=== PATIENT | male | born 1955 | race Caucasian/White ===

== ENCOUNTER 2017-01-18 15:17 | Observation (INO) ==
[~2017-01-18 15:17] MED LIST: LIDOCAINE 2% 5 ML VIAL ONE; PROPOFOL 200 MG/20 ML VIAL IV ONE
[2017-01-18] MEDS ORDERED: HYDROmorphone 2 MG/1 ML VIAL IV STA (15:54)
[2017-01-18] MEDS ORDERED: ONDANSETRON 4 MG/2 ML VIAL IV STA (15:54)
[2017-01-18] MEDS ORDERED: KETOROLAC 30 MG/1 ML VIAL IV STA (15:54)
[2017-01-18] MEDS ORDERED: SODIUM CHLORIDE 0.9% 1,000 ML IV STA (15:54)
[2017-01-18] MEDS ORDERED: HYDROmorphone 2 MG/1 ML VIAL ONE (16:02)
[2017-01-18] MEDS ORDERED: KETOROLAC 30 MG/1 ML VIAL ONE (16:02)
[2017-01-18] MEDS ORDERED: ONDANSETRON 4 MG/2 ML VIAL ONE (16:02)
--- NOTE | 2017-01-18 16:11 | CT Report ---
Exam: CT abdomen pelvis wo con Date: 01/18/2017 3:35 PM Comparison: 05/24/2015 Indication: Abdominal pain and flank pain right-sided Total DLP: 480.7 mGy*cm Technical: Images were obtained from the lung bases to the iliac crest continuation through the pelvis without intravenous oral contrast with axial sagittal coronal imaging available for review. Dose reduction was performed with decreasing kv and mA and automated exposure Findings: Lung bases: No obvious infiltrates or effusions present. Liver and Spleen: Unremarkable Gallbladder and Pancreas: Small calcification within the gallbladder. Pancreas is otherwise unremarkable. Adrenals: Unremarkable Kidneys: Mild dilatation the right renal collecting system with a stone in the distal right ureter measuring approximately 5 mm. Image slice #125 the left kidney reveals a stone in the left renal collecting system measuring approximately 3 to 4 mm in the lower pole with 2 mm stone in the upper pole region and a 5-6 mm stone present. Stomach: Incomplete distended with air-fluid and debris Retroperitoneum: No enlarged lymph nodes. Aorta and IVC: Atherosclerotic plaque in the aorta iliac vessels. No aneurysm noted. Aorta and IVC without contrast or not otherwise evaluated. Bowel and Mesentery: No evidence of appendicitis diverticulosis or diverticulitis present. Pelvis: Bladder: Incompletely distended with fluid Fluid: No free fluid identified. Lymph nodes: No enlarged lymph nodes. Pelvic organs: Unremarkable Osseous structures: Degenerative changes of thoracolumbar spine. The bony pelvis is otherwise intact. Impression: 1. Right ureterolithiasis with a 5 mm stone in the distal right ureter. Mild hydronephrosis right renal collecting system 2. Left nephrolithiasis without obstruction present. 3. Vascular calcifications aorta iliac vessels 4. Degenerative spondylosis changes thoracolumbar spine. PROCEDURE INTERPRETED AT [facility] DEPARTMENT OF RADIOLOGY Final Report Signed by: Dr. Sandip Cooper
--- NOTE | 2017-01-18 16:28 | XRay Report ---
XR abdomen 1V Indication: Abdominal pain Comparison: 24 May 2015 Findings: No free fluid or free air seen. Increased stool volume is seen in the colon. The bowel gas pattern otherwise appears within normal limits. No abnormal calcifications are present. No other abnormality is identified. Impression: Increased stool volume in the colon, may indicate constipation. PROCEDURE INTERPRETED AT [facility] DEPARTMENT OF RADIOLOGY Final Report Signed by: Dr. Pillo Perez
[2017-01-18 16:59] LABS: Apearance,Urine CLOUDY (Clear); Bacteria,Urine Moderate /HPF (Few); Bilirubin,Urine Negative (Negative); Blood, Urine Large mg/dL (Negative); Glucose,Urine (UA) 50 mg/dL (Negative); Ketones,Urine Negative (Negative); Mucus,Urine Occasional /LPF (Occasional); Nitrite,Urine Positive (Negative); Protein,Urine 100 MG/DL; RBC,Urine 49 /HPF (0-4); Squamous Epithelial Cell,Urine Occasional /HPF (0-10); Urine Color Yellow (Yellow); Urine Specific Gravity 1.017 (1.001-1.035); Urine Urobilinogen < 2.0 EU/DL (0.2-1.0); WBC,Urine 109 /HPF (0-6)
[2017-01-18 17:02] LABS: Basophils % 0.2 % (0.0-0.8); Eosinophils % 0.2 % (0.00-10.9); Hematocrit 43.8 VOL% (42.0-52.0); Hemoglobin 15.7 GM/DL (14.0-18.0); Immature Granulocytes % 0.5 %; Immature Granulocytes Absolute 0.05 #; Lymphocytes # 0.5 10*3/uL (1.4-4.0); Lymphocytes % 5.7 % (21.2-54.2); Mean Corpuscular HGB Conc 35.8 GM/DL (32-36); Mean Corpuscular Hemoglobin 35 PG (27-34); Monocytes # 0.5 10*3/uL (0.11-0.8); Monocytes % 4.9 % (1.7-12.7); Neutrophils % 88.5 % (38.7-73.9); Platelet Count 200 T/CUMM (130-400); Red Blood Count 4.47 MC/CUMM (3.8-5.5); Red Cell Distribution Width 12.2 % (9.3-17.3); White Blood Count 9.1 T/CUMM (4-12)
[2017-01-18 17:09] LABS: Calcium 8.8 MG/DL (8.5-10.1); Osmolality,Calculated 282.3 MOS/KG (273-304); Potassium 3.4 MMOL/L (3.5-5.1)
[2017-01-18] MEDS ORDERED: LEVOFLOXACIN INJ 500 MG in PREMIX 1 EACH IV STA (17:18)
[2017-01-18] MEDS ORDERED: LEVOFLOXACIN INJ 100 ML IV ONE (17:32)
--- NOTE | 2017-01-18 17:49 | Emergency Department Note ---
Joseph Craig Jessica J, am scribing for, and in the presence of, Immanuel Fowler MD 16:10. Malcolm Craig Doug C, MD, personally performed the services described in this documentation, ascribed by Arlene Ruiz in my presence, and it is both accurate and complete [id number] . Arrival - Arrival Chief Complaint: Abdominal / Flank Pain Stated Complaint: Right side pain ED Nursing Triage Note: Right sided abd pain onset just SADDLE STITCHER - pt states that he has a HX of kidney stones Mode of Arrival: Wheelchair Limitations: No Limitations Source: Patient Time Seen by Provider: 01/18/17 15:51 - History of Present Illness HPI Narrative: Patient is a 61-year-old gentleman who presents emergency room complaining of right flank pain that started 2 hours ago. Patient does have a history of kidney stones and states this pain is very reminiscent of discomfort he has had before with his stones. He has had a previous ESWL for kidney stones. He has not seen any blood in his urine and he denies any fever, chills or difficulty voiding. Onset (ago): hour(s) Consistency: constant Severity: severe Severity scale (1-10): 10 Quality: aching Allergies/Adverse Reactions: Allergies Allergy/AdvReac Type Severity Reaction Status Date / Time No Known Allergies Allergy Unverified 05/24/15 20:45 Home Medications: Home Medications Medication Instructions Recorded Confirmed Type Atazanavir Sulfate [Reyataz] 300 mg PO DAILY 05/24/15 01/18/17 History Emtricitabine/Tenofov 200-300 1 tablet PO DAILY 05/24/15 01/18/17 History [Truvada] Levothyroxine Tab [Synthroid Tab] 75 mcg PO DAILY@0700 05/24/15 01/18/17 History Ritonavir [Norvir] 100 tablet PO DAILY 05/24/15 01/18/17 History Valsartan [Diovan] 160 mg PO DAILY 05/24/15 01/18/17 History Review of System - Review of System 12 point system: reviewed and no additional remarkable complaints except as stated - Review of System Constitutional: Present: diaphoresis. Absent: chills, fever Eyes: Absent: vision change Head/Ears/Nose/Throat: Absent: earache, nasal drainage Respiratory: Absent: cough, respiratory distress Cardiovascular: Absent: chest pain Gastrointestinal: Present: abdominal pain (lower abdominal pain). Absent: nausea, vomiting Genitourinary male: Absent: urgency, dysuria, frequency Musculoskeletal: Absent: arm pain, leg pain, neck pain Skin: Absent: rash, change in color Neurological: Absent: headache, weakness, numbness Psychiatric: Absent: anxiety Hematological/Lymphatic: Absent: easy bleeding, easy bruising Medical,Surgical,& Family Hx - Medical History Cardio: History of: Hypertension Genitourinary: History of: Kidney Stones Gastrointestinal: History of: Polyps Reproductive: No histroy: Sexually Transmitted Disease Other: History of: HIV - Surgical History Abdominal Surgeries: Surgical HX of: Colonoscopy - Family History Family History: Reports;: Family Hypertension - Social History Smoking Status: Never smoker Frequency of Alcohol Use: None Type of Drug Use: None Exam Vital Signs: Vital Signs Temperature 97.1 F L 01/18/17 17:11 Pulse Rate 65 01/18/17 17:11 Respiratory Rate 20 01/18/17 17:11 Blood Pressure 162/86 01/18/17 17:11 O2 Sat by Pulse Oximetry 97 01/18/17 15:35 - General General appearance: alert, in distress (appears uncomfortable secondary to pain) - Head Head exam: Present: atraumatic, normocephalic - Eye Eye exam: Present: normal appearance, PERRL, EOMI - ENT ENT exam: Present: normal exam, normal oropharynx, mucous membranes moist. Absent: mucous membranes dry - Neck Neck exam: Present: normal inspection, full ROM, trachea midline - Chest Chest inspection: Present: normal inspection, symmetric chest wall rise - Respiratory Respiratory exam: Present: normal lung sounds bilaterally - Cardiovascular Cardiovascular exam: Present: regular rate, normal rhythm, normal heart sounds - Abdominal Exam Abdominal exam: Present: soft, tenderness (lower abdominal tender to light touch of the stethoscope), normal bowel sounds. Absent: distention - Extremities Exam Extremities exam: Present: normal inspection, full ROM. Absent: tenderness - Back Exam Back exam: Present: normal inspection - Neurological Exam Neurological exam: Present: alert, oriented X3, CN II-XII intact. Absent: motor sensory deficit - Psychiatric Psychiatric exam: Present: normal affect, normal mood - Skin Skin exam: Present: warm, dry, intact, normal color Course Course Narrative: Patient's clinical presentation, laboratory and radiographic findings were discussed with Dr. Paredes who will see the patient here in the emergency room and determine final disposition. Results - Labs CBC & BMP: 01/18/17 16:35 01/18/17 16:35 Lab Results: I have reviewed the patients labs Labs: Laboratory Tests 01/18/17 15:55 Urine pH 5.0 Ur Specific [place] 1.017 Urine Protein 100 Urine Ketones Negative Urine Nitrate Positive H Urine Urobilinogen < 2.0 H Urine Leukocytes Moderate H Urine RBC 49 Urine WBC 109 Laboratory Tests 01/18/17 01/18/17 16:35 16:35 WBC 9.1 RBC 4.47 Hgb 15.7 Hct 43.8 MCH 35 H Plt Count 200 MPV 9.0 L Neut % (Auto) 88.5 H Lymph % (Auto) 5.7 L Neut # (Auto) 8.0 H Lymph # (Auto) 0.5 L Sodium 141 Potassium 3.4 L Chloride 109 H Carbon Dioxide 25 BUN 17 Creatinine 1.60 H - Diagnostic Findings Procedure: Abdominal x-ray: report reviewed by me (Increased stool volume in the colon, may indicate constipation.), KUB x-ray: report reviewed by me (Stone is visible on KUB.), CT Abdomen and Pelvis: report reviewed by me (1. Right ureterolithiasis with a 5mm stone in the distal right ureter. Mild hydronephrosis right renal collecting system. 2. Left nephrolithiasis without obstruction present. 3. Vascular calcifications aorta iliac vessels. 4. Degenerative spondylosis changes thoracolumbar spine. ) Disposition Clinical Impression: Right ureteral calculus Case discussed with: patient Disposition: Still a Patient Condition: Guarded Time of Disposition: 17:49
[2017-01-18] MEDS ORDERED: cefTRIAXone 1,000 MG in SODIUM CHLORIDE 0.9% 100 ML IV ONE (18:08)
--- NOTE | 2017-01-18 18:23 | Urology History & Physical ---
Assessment and Plan - Time spent with patient Time spent with patient: Less than 30 minutes (1) Hydronephrosis due to obstruction of ureter Status: Acute Assessment and plan: Right distal calculus that are measuring just over 6 mm. He has hydronephrosis and hydroureter down to the calculus. We have discussed trial of passage, ESWL, and stent placement. He reports that his insurance will not cover ESWL at [facility]. He will have to have this arranged in the future. Due to his history of HIV, nitrite positive urine with pyuria, elevated serum creatinine, and significant hydronephrosis, he elects for stent placement. He understands they will have symptoms including stent discomfort, dysuria, frequency, and some pain from this. He will need a another procedure to treat his stones. Current Visit: Yes (2) UTI (urinary tract infection) Status: Acute Assessment and plan: Urine culture sent Rocephin 1 g IV Stent placement needed nitrite positive urine and history of immunodeficiency disease Current Visit: Yes Qualifiers: Hematuria presence: without hematuria (3) Elevated serum creatinine Status: Acute Assessment and plan: Creatinine 1.60, unsure of exact baseline. Obstructing right ureteral calculus noted Current Visit: Yes (4) HIV (human immunodeficiency virus infection) Status: Acute Current Visit: Yes (5) HTN (hypertension) Status: Acute Assessment and plan: Continue home medication Current Visit: Yes (6) Hypothyroidism Status: Acute Assessment and plan: Continue levothyroxine Current Visit: Yes (7) Right ureteral calculus Status: Acute Assessment and plan: We will place right ureteral stent, but he will need definitive treatment of his stone. He reports that he cannot have this done at [place], [place]. Will place a stent without a strain, and then he can follow-up with him as an outpatient. He is does live alone, and we will admit for observation after stent overnight. Current Visit: Yes 12 point system: reviewed and no additional remarkable complaints except as stated - Constitutional Constitutional: Present: chills. Absent: fever(s) - Respiratory Respiratory: Absent: cough, dyspnea - Gastrointestinal Gastrointestinal: Present: abdominal pain - Genitourinary Genitourinary: Present: flank pain. Absent: dysuria, hematuria - Neurological Neurological: Absent: abnormal gait, abnormal speech - Hematologic/Lymphatic Hematologic/Lymphatic: Absent: easy bleeding, easy bruising History of Present Illness Chief complaint: right abd pain History of present illness: Mr. Leung is a 61 year old male who presented to the emergency department with right-sided abdominal pain that started today. He has a history of prior renal stones. He has had lithotripsy in the past. He reports that his insurance will only cover it at [facility]. He reports some subjective chills but no documented fevers. He is having no vomiting or diarrhea. No nausea. He does have a significant history of HIV but thinks his last viral load was undetectable. He has a history of hypertension. His pain is fairly well-controlled currently. I am unsure of his last creatinines, but his creatinine is 1.60 today. He had a urinalysis was nitrite positive with evidence of pyuria. He reports acute onset. Pain is worsened, but now improved with narcotics. Unsure what his prior stones were made of. He has never sent a stone analysis. He has been seen by Dr. Roblero and Dr. Fowler. He states that he identifies Noah Fowler as his urologist. Home Medications Medication Instructions Recorded Confirmed Type Atazanavir Sulfate [Reyataz] 300 mg PO DAILY 05/24/15 01/18/17 History Emtricitabine/Tenofov 200-300 1 tablet PO DAILY 05/24/15 01/18/17 History [Truvada] Levothyroxine Tab [Synthroid Tab] 75 mcg PO DAILY@0700 05/24/15 01/18/17 History Ritonavir [Norvir] 100 tablet PO DAILY 05/24/15 01/18/17 History Valsartan [Diovan] 160 mg PO DAILY 05/24/15 01/18/17 History Allergies Allergy/AdvReac Type Severity Reaction Status Date / Time No Known Allergies Allergy Unverified 05/24/15 20:45 Medical,Surgical,& Family Hx - Medical History Cardio: History of: Hypertension No history of: CHF, SD Psychological: No history of: Anxiety Disorders, Depression Neurology: No history of: Cerebrovascular Accident, Migraine HEENT: No history of: Ear Problem, Eye Problem Endocrine: History of: Thyroid Disorder Rheumatology: No history of;: Gout, Rheumatoid Arthritis Respiratory: No history of: COPD, Obstructive Sleep Apnea Genitourinary: History of: Kidney Stones Gastrointestinal: History of: Polyps Reproductive: No histroy: Sexually Transmitted Disease Other: History of: HIV - Surgical History Thoracic Surgeries: Surgical HX of;: Lithotripsy Abdominal Surgeries: Surgical HX of: Colonoscopy - Family History Family History: Reports;: Family Hypertension - Social History Smoking Status: Never smoker Frequency of Alcohol Use: None Type of Drug Use: None Exam - Constitutional Vitals: Period Temp Pulse Resp BP Sys/Mccloud Pulse Ox Last 24 Hr 97.1 F-97.1 F 65-65 20-20 162-162/86-86 97 General appearance: no acute distress - Head Head exam: Present: normocephalic, atraumatic - Eye Eye exam: Present: EOMI - ENT ENT exam: Present: normal oropharynx - Neck Neck exam: Present: normal inspection. Absent: lymphadenopathy - Respiratory Respiratory exam: Present: clear to auscultation bilaterally. Absent: wheezes - Cardiovascular Cardiovascular exam: Present: regular rate and rhythm. Absent: JVD - GI/Abdominal GI/Abdominal exam: Present: normal bowel sounds, tenderness (Mild right lower quadrant tenderness but no rebound). Absent: rebound - Genitourinary Genitourinary: scrotum without lesions, cysts, edema or rash, penis with no lesions or discharge - Extremities Exam Extremities exam: Present: normal inspection, normal capillary refill - Back Exam Back exam: Present: CVA tenderness (R). Absent: CVA tenderness (L) - Neurological Exam Neurological exam: Present: alert, oriented X3 - Psychiatric Psychiatric exam: Present: normal affect, normal mood - Skin Skin exam: Present: warm, dry Results - Labs CBC & BMP: 01/18/17 16:35 01/18/17 16:35
[2017-01-18] MEDS ORDERED: cefTRIAXone 1,000 MG VIAL ONE (18:59)
--- NOTE | 2017-01-18 19:50 | Operative Note ---
Date of procedure: 01/18/17 Pre-op diagnosis: Right obstructing ureteral calculus; right hydronephrosis; UTI ; elevated Cr Post-op diagnosis: same Procedure: Cystoscopy with insertion of right double-J ureteral stent Indication for procedure: This is a 61-year-old male with a history of HIV and renal stones who presented with acute onset of flank pain today. He was found to have pyuria with nitrite positive urine, a creatinine elevated at 1.60 in significant right flank pain. He reports that his insurance will not allow him to have definitive stone management here, and he will need to go to [place], [place]. We have discussed the risks, benefits, and alternatives of treatment. Due to his HIV and nitrite positive urine he elected for stent placement. Procedure detail: This is a 58-year-old male brought to the OR after informed consent. He was placed supine on the operating table. Proper monitoring devices and SCDs in place and functioning prior to start of the case. He received preop antibiotics with Rocephin 1 g IV. He was induced with general anesthetic without incident. He was then moved to the dorsal lithotomy position. His genitals were prepped and draped in standard fashion. Proper timeout was performed. A 22 Polish rigid cystoscope was used to intubate the urethral meatus. He had a normal anterior urethra with a normal posterior urethra. Approximately 3 cm prostate with no significant obstruction. Slightly elevated bladder neck. His bladder did demonstrate multiple shallow diverticuli with some debris to the bladder. It orthotopic UOs bilaterally. The right UO was identified and a 0.035 angled tip Glidewire was passed into the UO. After passing the stone and a significant amount of debris as well as some stone fragments actually passed. With some evidence of purulent drainage at initial placement. The wire curled in the upper pole on fluoroscopy. A 6 Polish by 26 cm double-J ureteral stent was placed over the wire. Had a good curl on fluoroscopy in the kidney. He had a good curl in the bladder cystoscopically as well as with fluoroscopy. These images were saved. There is significant debris drainage a Schwarz catheter was placed. Plan: We will admit for observation and drainage with Schwarz catheter overnight. Hopefully he will be able to remove the Schwarz in the morning. He will need definitive stone management in the future. Implants: 6 Polish by 26 cm right double-J ureteral stent Anesthesia: CATHERINEA Surgeon / Physician: Artis Paredes Estimated blood loss: none Specimens: other (Urine culture ordered) Condition: stable Disposition: observation Results - Labs CBC & BMP: 01/18/17 16:35 01/18/17 16:35 Lab Results: I have reviewed the past 24 hour labs - Diagnostic Findings Procedure: KUB x-ray: image reviewed by me, CT Abdomen and Pelvis: image reviewed by me Discharge Plan - Discharge Data Disposition: Still a Patient - Discharge Medications No Action Valsartan [Diovan] 160 mg PO DAILY Levothyroxine Tab [Synthroid Tab] 75 mcg PO DAILY@0700 Emtricitabine/Tenofov 200-300 [Truvada] 1 tablet PO DAILY Atazanavir Sulfate [Reyataz] 300 mg PO DAILY Ritonavir [Norvir] 100 tablet PO DAILY - Follow Up or Referral - Forms/Instructions
--- NOTE | 2017-01-18 20:06 | Anesthesia Post-Op ---
Anesthesia Post OP - Post Ansesthetic Evaluation Patient seen in post op: Yes Resp: within normal limits CV: within normal limits Mental: within normal limits Temp: within normal limits [id number]: within normal limits Nausea and Vomiting: within normal limits Pain: within normal limits
[2017-01-18] MEDS ORDERED: fentaNYL 100 MCG/2 ML VIAL ONE (20:11)
[2017-01-18] MEDS ORDERED: MIDAZOLAM 2 MG/2 ML VIAL ONE (20:11)
--- NOTE | 2017-01-18 20:54 | Fluoroscopy Report ---
Exam: [place] fluoroscopy <1hr retrograde pyelogram in OR Date: 01/18/2017 Indication: Right flank pain Comparison: None Findings: 11 seconds fluoroscopy time provided with 2 images obtained which reveals placement of a double-J stent in the right renal collecting system. Small calcifications present in the distal right ureterovesical junction. No contrast was administered. Impression: Interval placement of double-J stent right renal collecting system with suggestion of stone in the distal right ureter. PROCEDURE INTERPRETED AT [facility] DEPARTMENT OF RADIOLOGY Final Report Signed by: Dr. Sandip Cooper
[2017-01-18] MEDS ORDERED: MORPHINE 2 MG/1 ML SYRINGE IV PRN (21:50)
[2017-01-18] MEDS ORDERED: ONDANSETRON 4 MG/2 ML VIAL IV PRN (21:50)
[2017-01-18] MEDS: SODIUM CHLORIDE 0.9% 1,000 ML IV SCH (22:55)
[2017-01-19] MEDS: SODIUM CHLORIDE 0.9% 1,000 ML IV SCH (06:23)
[2017-01-19] MEDS ORDERED: LEVOTHYROXINE 75 MCG TABLET PO SCH (07:00)
--- NOTE | 2017-01-19 07:09 | Discharge Summary ---
Hospital Course - Hospital Course Hospital Course: Admitted for observation after cystoscopy with right ureteral stent placement. He had significant amount of debris in urine that drained immediately after stent was placed. He is done well overnight. Minimal pain. No fevers or chills. No nausea vomiting. Had a catheter overnight for maximize drainage. Discontinued his Schwarz this morning and will Hep-Lock. He is clinically stable. Will discharge home with antibiotics. Will need to follow-up his urine culture. I have discussed that he will need definitive stone management and the stent does not need to stay in long-term. I will ask for follow-up with Dr. Fowler. He reports that his insurance would not allow him to have lithotripsy at [place]. He will have to work this out, and may need referral to another facility. - Time spent with patient Time with patient DS: Less than 30 minutes Diagnosis - Discharge Diagnosis (1) Hydronephrosis due to obstruction of ureter Status: Acute (2) UTI (urinary tract infection) Status: Acute (3) Elevated serum creatinine Status: Acute (4) HIV (human immunodeficiency virus infection) Status: Acute (5) HTN (hypertension) Status: Acute (6) Hypothyroidism Status: Acute (7) Right ureteral calculus Status: Acute Specialty Discharge - Follow Up or Referrals Follow up with: Noah Fowler MD [Physician] - 1 Week (within 1-2 weeks if possible- established pt with Dr Fowler) - Speciality Discharge Instructions Urology Instructions: This right ureteral stent does not need to stay in long- term. If he did not follow-up, including crust and cause you to have more problems. This could ultimately lead to loss of your kidney if not treated appropriately and in a timely manner. You need to contact her insurance company to find out where you can be treated. If you do not have an appointment and have not heard from the urology clinic, please call [place] [facility] for instructions. Discharge Plan - Discharge Data Disposition: Disch To Home/Self Care Condition at Discharge: Stable Discharge Diet: advance to your usual diet, other (Increase intake of oral hydration) Activity: resume usual activities as tolerated Hygiene: may shower Weight Bearing at Discharge: full weight bearing Driving: no restrictions Contact your physician if you experience:: fever over 101, Nausea/Vomiting, Shortness of breath, Bleeding (He can expect some blood in urine, but should not be clots that stop you from voiding), pain uncontrolled by pain medications - Discharge Medications New cephALEXin [Keflex] 500 mg PO Q12HR #14 capsule Hydrocodone/Acetaminophen [[place] 10-325 Tablet] 1 each PO Q6-8H PRN #20 tablet PRN Reason: Pain Moderate To Severe (4-10) Tamsulosin [Flomax] 0.4 mg PO DAILY #30 capsule No Action Valsartan [Diovan] 160 mg PO DAILY Levothyroxine Tab [Synthroid Tab] 75 mcg PO DAILY@0700 Emtricitabine/Tenofov 200-300 [Truvada] 1 tablet PO DAILY Atazanavir Sulfate [Reyataz] 300 mg PO DAILY Ritonavir [Norvir] 100 tablet PO DAILY - Follow Up or Referral - Forms/Instructions Exam - Constitutional Vitals: Period Temp Pulse Resp BP Sys/Mccloud Pulse Ox Last 24 Hr 97.1 F-98.4 F 62-91 16-20 100-168/66-92 92-99 General appearance: no acute distress - Head Head exam: Present: normal inspection, normocephalic - Eye Eye exam: Present: EOMI - ENT ENT exam: Present: normal oropharynx - Neck Neck exam: Present: normal inspection. Absent: lymphadenopathy - Respiratory Respiratory exam: Present: clear to auscultation bilaterally. Absent: rhonchi, stridor - Cardiovascular Cardiovascular exam: Present: regular rate and rhythm. Absent: JVD - GI/Abdominal GI/Abdominal exam: Present: soft. Absent: tenderness, rebound - Extremities Exam Extremities exam: Present: normal inspection, normal capillary refill - Back Exam Back exam: Absent: CVA tenderness (L), CVA tenderness (R) - Neurological Exam Neurological exam: Present: alert, oriented X3 - Psychiatric Psychiatric exam: Present: normal affect, normal mood - Skin Skin exam: Present: warm, dry Discharge Results Procedures and tests throughout hospitalization: Pending Orders 01/18/17 Urine Culture Routine 01/18/17 19:45 Urine Culture Routine 01/19/17 04:00 BMP [Basic Metabolic Panel] IN AM Labs on day of discharge: Labs from last 24 hours 01/18/17 01/18/17 01/18/17 16:35 16:35 15:55 WBC 9.1 RBC 4.47 Hgb 15.7 Hct 43.8 MCV 98.0 MCH 35 H MCHC 35.8 RDW 12.2 Plt Count 200 MPV 9.0 L Neut % (Auto) 88.5 H Lymph % (Auto) 5.7 L Candler % (Auto) 4.9 Eos % (Auto) 0.2 Baso % (Auto) 0.2 Neut # (Auto) 8.0 H Lymph # (Auto) 0.5 L Candler # (Auto) 0.5 Eos # (Auto) 0.0 Baso # (Auto) 0.0 Immature Gran % 0.5 Nucleated RBC % 0.0 Immature Gran # 0.05 Nucleated RBCs # 0.00 Immature Plt Fraction 0.0 Sodium 141 Potassium 3.4 L Chloride 109 H Carbon Dioxide 25 Anion Gap 10.4 BUN 17 Creatinine 1.60 H GFR Calculation 56 BUN/Creatinine Ratio 10.00 Glucose 104 Calculated Osmolality 282.3 Calcium 8.8 Urine Color Yellow Urine Appearance Cloudy Urine pH 5.0 Ur Specific [place] 1.017 Urine Protein 100 Urine Glucose (UA) 50 Urine Ketones Negative Urine Blood Large Urine Nitrate Positive H Urine Bilirubin Negative Urine Urobilinogen < 2.0 H Urine Leukocytes Moderate H Urine RBC 49 Urine WBC 109 Urine WBC Clumps Few Ur Squamous Epith Cells Occasional Urine Bacteria Moderate Urine Mucus Occasional Ur Culture Indicated? Results to follow - Imaging and Cardiology Procedure: KUB x-ray: image reviewed by me, CT Abdomen and Pelvis: image reviewed by me DS: Provider Date of admission: 01/18/17 18:05 Primary care physician: . No PCP Attending physician on admission: Artis Paredes MD Consults: 01/18/17 18:07 Consult to Anesthesiology [CONS] Routine Consulting Provider: Reason for Anesthesiology: Pre-op Clearance Discharging clinician: Artis Paredes MD
[2017-01-19 07:42] VITALS: BP 129/82
[2017-01-19 07:55] LABS: Calcium 8.3 MG/DL (8.5-10.1); Potassium 4.3 MMOL/L (3.5-5.1)
[2017-01-19] MEDS ORDERED: FAMOTIDINE 20 MG TABLET PO SCH (09:00)
[2017-01-19] MEDS ORDERED: VALSARTAN 160 MG TABLET PO SCH (09:00)
[2017-01-19] MEDS ORDERED: EMTRICITABINE/TENOFOVIR 200-300 MG TABLET PO SCH (09:00)
[2017-01-19] MEDS ORDERED: ATAZANAVIR SULFATE 300 MG PO SCH (09:00)
[2017-01-19] MEDS ORDERED: RITONAVIR PO SCH (09:00)
== END 2017-01-19 10:47 | disposition home or self-care (01) ==
LOC: N.EDINP 15:17 → N.ED 15:17 → N.5E 19:05
PROVIDERS: ADMIT Surgery; ATTEND Surgery